=== PATIENT | male | born 1990 | race Caucasian/White ===

== ENCOUNTER → 2025-06-07 09:35 | Outpatient (CLI) | payer OTHER, SELFPAY ==
[2025-06-07 11:53] LABS: Influenza A - CEPHEID Flu A NEGATIVE (NEGATIVE); Influenza B - CEPHEID Flu B NEGATIVE (NEGATIVE)
[2025-06-07 12:15] LABS: COVID-19 CEPHEID 4-PLEX PCR Negative (Negative)
== END ==
PROVIDERS: Visit Provider Physician Assistant
DX: J02.9 Acute pharyngitis, unspecified (principal)
CPT/HCPCS: 87637

== ENCOUNTER 2025-07-22 15:25 | Emergency (ER) | payer OTHER, SELFPAY ==
[2025-07-22 15:33] VITALS: BP 142/99; PULSE 73; RESP 16; TEMP 36.9; O2SAT 98; BMI 30.4
[2025-07-22 15:59] LABS: Add Manual Diff / Slide Review NO; Hematocrit 44.8 % (41-53); Hemoglobin 15.7 g/dL (13.5-17.5); Lymphocytes Absolute Auto 1700 /uL (1100-4500); Mean Corpuscular HGB Conc 34.9 % (30-36); Mean Corpuscular Hemoglobin 29.3 PG (26-34); Mean Corpuscular Volume 83.7 fL (80-100); Platelet Count 294 X10^3/uL (150-400)
[2025-07-22 16:10] LABS: Alanine Aminotransferase 62 IU/L (<50); Albumin 5.1 g/dL (3.5-5.0); Albumin Globulin Ratio 1.5 (1.0-2.8); Alkaline Phosphatase 65 U/L (38-126); Blood Urea Nitrogen 20 mg/dL (9-20); Calcium 9.8 mg/dL (8.4-10.2); Carbon Dioxide 23 mmol/L (22-32); Chloride 103 mmol/L (98-107); Estimated Glomerular Filt Rate > 60 mL/min (>60); Globulin 3.3 g/dL (1.7-4.1); Glucose 96 mg/dL (70-99); HEMOLYSIS < 15 (0-50); Lipase 46 U/L (23-300); Potassium 3.8 mmol/L (3.4-5.1); Sodium 140 mmol/L (137-145); Total Protein 8.4 g/dL (6.3-8.2)
--- NOTE | 2025-07-22 17:10 | DI.CT.S_ITS ---
PROCEDURE: CT ABDOMEN PELVIS WO CON
[2025-07-22 18:31] VITALS: BP 133/81; PULSE 79; RESP 14; O2SAT 98
[2025-07-22] MEDS: KETOROLAC 30 MG/ML VIAL 15 MG IV (18:42)
--- NOTE | 2025-07-22 19:56 | ED_ITS ---
HPI - Male Genitourinary
--- NOTE | 2025-07-22 19:56 | ED.MALEGU ---
HPI - Male Genitourinary General Chief complaint: Urogenital-Male Stated complaint: kidney pain Time Seen by Provider: 07/22/25 17:08 Mode of arrival: Ambulatory History of Present Illness HPI Narrative: 34-year-old male with a history of kidney stones presents with right-sided mid back area pain that started suddenly today. It feels like a dull ache and he does admit to being more active than usual today where he was moving around heavy logs as well. He denies any symptoms or other symptoms. Related Data Previous Rx's ?Medication ?Instructions ?Recorded benzonatate 200 mg capsule 200 mg PO TID PRN cough #30 caps 06/07/25 guaifenesin 1,200 mg tablet, 1,200 mg PO Q12H #30 tabs 06/07/25 extended release 12 hr Allergies Allergy/AdvReac Type Severity Reaction Status Date / Time No Known Drug Allergies Allergy Unverified 06/07/25 09:34 Review of Systems Review of Systems ROS Unobtainable: All systems reviewed & are unremarkable except as noted in HPI and below Patient History Social History Smoking Status: Former smoker Smoking Status: Former smoker Exam Narrative Exam Narrative: General: Patient appears to be in no acute distress, acting appropriately Head: normocephalic, atraumatic, HEENT: Pupils equal round reactive, eyes tracking well, neck supple, no JVD Heart: regular rate and rhythm, no murmurs, rubs, or gallops heard Lungs: clear to auscultation, no adventitious sounds Abdomen: soft , nontender, nondistended, positive bowel sounds, no cva tenderness bilaterally, mild pain with palpation around right mid back area Neurological: no focal neurological signs, moving all extremities well, alert and oriented x3, Psych: good judgment ,good insight, mood is normal. Initial Vital Signs Initial Vital Signs: Vital Signs Temperature 98.5 F 07/22/25 15:33 Pulse Rate 73 07/22/25 15:33 Respiratory Rate 16 07/22/25 15:33 Blood Pressure 142/99 H 07/22/25 15:33 Pulse Oximetry 98 07/22/25 15:33 Oxygen Delivery Method Room Air 07/22/25 15:33 Course Orders Ordered: Discontinued Medications Cyclobenzaprine HCl (Cyclobenzaprine 10 Mg Tablet) 10 mg PO NOW ONE Stop: 07/22/25 20:07 Last Admin: 07/22/25 20:18 Dose: 10 mg Documented By: ANABELA Cyclobenzaprine HCl (Cyclobenzaprine 10 Mg Prepack) 1 bottle MISC DIRECTED ONE Stop: 07/22/25 20:07 Last Admin: 07/22/25 20:18 Dose: 1 bottle Documented By: ANABELA Ketorolac Tromethamine (Ketorolac 30 Mg/Ml Vial) 15 mg IV NOW ONE Stop: 07/22/25 18:36 Last Admin: 07/22/25 18:42 Dose: 15 mg Documented By: ARTURO Ondansetron HCl (Ondansetron 4 Mg/2 Ml Inj) 4 mg IV NOW PRN PRN Reason: Nausea And Vomiting Ondansetron HCl (Ondansetron 4 Mg Odt) 4 mg PO NOW PRN PRN Reason: Nausea And Vomiting Vital Signs Vital signs: Vital Signs - 8 hr 07/22/25 15:33 07/22/25 18:31 Temperature 98.5 F Pulse Rate 73 79 Respiratory Rate 16 14 Blood Pressure 142/99 H 133/81 Pulse Oximetry 98 98 Oxygen Delivery Method Room Air Room Air MDM - Male Genitourinary Lab Data 07/22/25 15:45 07/22/25 15:45 Labs: Lab Results 07/22/25 07/22/25 Range/Units 15:45 16:31 WBC 6.9 (4.5-11.0) X10^3/uL RBC 5.36 (4.5-5.9) X10^6/uL Hgb 15.7 (13.5-17.5) g/dL Hct 44.8 (41-53) % MCV 83.7 (80-100) fL MCH 29.3 (26-34) PG MCHC 34.9 (30-36) % RDW 13.1 (11.6-14.8) % Plt Count 294 (150-400) X10^3/uL Neut % (Auto) 65.4 (50-75) % Lymph % (Auto) 24.0 L (25-40) % Gregory % (Auto) 9.0 (3-14) % Eos % (Auto) 0.9 L (2-4) % Baso % (Auto) 0.7 (0-2) % Neut # (Auto) 4500 (8105-0151) /uL Lymph # (Auto) 1700 (9557-8914) /uL Gregory # (Auto) 600 (0-900) /uL Eos # (Auto) 100 (0-450) /uL Baso # (Auto) 0 (0-100) /uL Sodium 140 (137-145) mmol/L Potassium 3.8 (3.4-5.1) mmol/L Chloride 103 (98-107) mmol/L Carbon Dioxide 23 (22-32) mmol/L BUN 20 (9-20) mg/dL Creatinine 0.90 (0.66-1.25) mg/dL Estimated GFR > 60 (>60) mL/min BUN/Creatinine Ratio 22.2 H (6-22) Glucose 96 (70-99) mg/dL Calcium 9.8 (8.4-10.2) mg/dL Total Bilirubin 0.5 (0.2-1.3) mg/dL AST 36 (17-59) IU/L ALT 62 H (<50) IU/L Alkaline Phosphatase 65 (38-126) U/L Total Protein 8.4 H (6.3-8.2) g/dL Albumin 5.1 H (3.5-5.0) g/dL Globulin 3.3 (1.7-4.1) g/dL Albumin/Globulin Ratio 1.5 (1.0-2.8) Lipase 46 (23-300) U/L Urine RBC 1-5/hpf (0-5/HPF) Urine WBC 0-1/hpf (0-5/HPF) Ur Squamous Epith Cells 0-1 /hpf (0-5/HPF) Urine Bacteria Occasional (0-1) (None) Vol Urine Centrifuged 10ml (spun) Urine Dip Bedside Urine Glucose Negative Bedside Urine Bilirubin - Negative Bedside Urine Ketone - Negative Urine Specific [place] 1.020 Bedside Urine Occult Blood ++ Bedside Urine pH 6.0 Bedside Urine Protein - Negative Bedside Urine Urobilinogen - Negative Bedside Urine Nitrite - Negative Bedside Urine Leukocytes - Negative Esterase Imaging Data CT scan - abdomen/pelvis: Radiologist's Impression: No acute abdominal process. Specifically, no appendicitis, diverticulitis, urolithiasis, or obstruction. Diverticulosis without diverticulitis. MDM Narrative Medical decision making narrative: 34-year-old male presents with more pain in his mid right side of his back after heavy lifting today. The CT of the abdomen and pelvis did not reveal an acute abdominal process. No evidence of an appendicitis, diverticulitis, urolithiasis or obstruction. It did show some diverticulosis potentially but his pain more likely from a muscle strain. Pain improved with some Toradol. Patient given also some Flexeril to take at home and will follow up for any worsening symptoms. Discharge Plan Departure Patient Disposition: Home Clinical Impression: Diverticulosis Muscle strain of right upper back Qualifiers: Encounter type: initial encounter Qualified Code(s): S29.012A - Strain of muscle and tendon of back wall of thorax, initial encounter Instructions: DI for Diverticulosis Activity Restrictions/Additional Instructions: No acute abdominal process seen in the CT. May have dealt with a muscle strain versus diverticulosis. Go ahead and use the Flexeril as needed that we gave as a take home pack it. Try to incorporate more fiber in your diet. Follow up if symptoms do not improve. Prescriptions: No Action guaifenesin 1,200 mg tablet extended release 12hr 1,200 mg PO Q12H Qty: 30 0RF benzonatate 200 mg capsule 200 mg PO TID PRN (Reason: cough) Qty: 30 0RF Stand Alone Forms: Patient Portal/API
[2025-07-22] MEDS: CYCLOBENZAPRINE 10 MG TABLET PO (20:18)
[2025-07-22] MEDS: CYCLOBENZAPRINE 10 MG PREPACK 1 BOTTLE MISC (20:18)
[2025-07-22 20:27] VITALS: BP 133/89; PULSE 69; RESP 18; TEMP 36.7; O2SAT 98
== END 2025-07-22 20:30 | disposition home or self-care (01) ==
PROVIDERS: Emergency Medicine; Emergency Provider Family Medicine
DX: K57.90 Diverticulosis of intestine, part unspecified, without perforation or abscess without bleeding (principal); S29.012A Strain of muscle and tendon of back wall of thorax, initial encounter; Z87.442 Personal history of urinary calculi
CPT/HCPCS: 36415; 74176; 80053; 81003; 81015; 83690; 85025; 87086; 96374; 99284; J1885